=== PATIENT | male | born 1975 | race Caucasian/White ===

== ENCOUNTER 2018-07-10 03:48 | Emergency (ER) | payer OTHER ==
[2018-07-10] MEDS ORDERED: Metoclopramide 10 MG/2 ML SDV IVPUSH ONE (04:23)
[2018-07-10] MEDS ORDERED: Hyoscyamine 0.125 MG Tab.SL SL ONE (04:23)
[2018-07-10] MEDS ORDERED: HYDROmorphone 1 MG/ML Syringe IVPUSH ONE (04:23)
--- NOTE | 2018-07-10 04:28 | EDM.PDOC ---
ED HPI GENERAL MEDICAL PROBLEM - General Chief Complaint: Abdominal Pain Stated Complaint: GALLBLADDER ISSUES, STOMACH ISSUES Time Seen by Provider: 07/10/18 04:23 Source of Information: Reports: Patient History Limitations: Reports: No Limitations - History of Present Illness INITIAL COMMENTS - FREE TEXT/NARRATIVE: 43-year-old male presents to the ED after wakening from sleep at about midnight with diffuse right upper quadrant abdominal pain. Pain radiates along his costal margin in the summer tubular colic which she's experienced in the past. Reports she's had his gallbladder removed laparoscopically about 9 years ago. He did fine up until about April of this year when he presented to the ED with diffuse right upper quadrant abdominal pain. He tells me that ultrasound identified a stone witin one of his hepatic ducts. At that time he was diagnosed with pancreatitis as well. He had serial lab work done and things return back to normal. Subsequently he has avoided alcohol and is careful with his diet and he's been fine up until tonight. States his stomach did not feel real well last evening and he had broth soup some yogurt only. Current pain is across his entire upper abdomen in the distribution of the pancreas. Opinion pain radiates along the right costal margin to the right lateral chest wall but not inferior to his shoulder blade. states he got up out of bed at midnight and moved to the couch and other places and pain seemed to ease up a little bit. Nausea started to become quite severe around 3:00. He vomited en route to the hospital and got some transient relief of the pain but it has now returned. He does not know he met emesis occurred. It was all bile. It's unclear to me why he was not referred for ERCP especially when he had an associated pancreatitis on visit in April. I will investigate old records. Patient reports no other abdominal surgeries. Onset: Today Onset Date: 07/10/18 Onset Time: 00:00 Duration: Hour(s): Location: Reports: Abdomen (Right upper quadrant of the abdomen.), Radiates to ( Radiates along the right costal margin and across his upper abdomen.) Quality: Reports: Ache, Other (In is described as a deep aching pain with occasional sharp colicky type pain) Severity: Moderate (7 out of 10) Improves with: Reports: Other (Transient improvement after vomiting.) Worsens with: Reports: None Context: Reports: Other (Awoke from sleep with abdominal pain). Denies: Activity, Exercise, Lifting, Sick Contact, Trauma Associated Symptoms: Reports: Loss of Appetite, Nausea/Vomiting. 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 He is currently on no medications. He's [place] sugars fairly regularly and they are usually between 100-140.), Obesity/BMI 30+ - Past Surgical History HEENT Surgical History: Reports: Oral Surgery GI Surgical History: Reports: Cholecystectomy Social & Family History - Tobacco Use Smoking Status *Q: Never Smoker - Caffeine Use Caffeine Use: Reports: Coffee - Recreational Drug Use Recreational Drug Use: No - Living Situation & Occupation Living situation: Reports: Occupation: Employed ED ROS GENERAL - Review of Systems Review Of Systems: See Below Constitutional: Reports: Decreased Appetite. Denies: Fever, Chills, Malaise, Weakness, Fatigue, Weight Loss HEENT: Reports: Glasses Respiratory: Reports: Shortness of Breath (Can take a full deep breath as it aggravates his upper abdominal pain) Cardiovascular: Reports: No Symptoms. Denies: Chest Pain, Blood Pressure Problem, Claudication, Dyspnea on Exertion, Edema, Lightheadedness, Orthopnea Endocrine: Reports: No Symptoms GI/Abdominal: Reports: Abdominal Pain, Nausea (See history of present illness), Vomiting (Vomiting of bilious material times one shortly before coming to the ED ) : Reports: No Symptoms Musculoskeletal: Reports: No Symptoms Skin: Reports: No Symptoms Neurological: Reports: No Symptoms Psychiatric: Reports: No Symptoms Hematologic/Lymphatic: Reports: No Symptoms Immunologic: Reports: No Symptoms ED EXAM, GI/ABD - Physical Exam Exam: See Below Exam Limited By: No Limitations General Appearance: Alert, WD/WN, No Apparent Distress Eyes: Bilateral: Normal Appearance (No jaundice) Throat/Mouth: Normal Inspection, Normal Lips, Normal Oropharynx Head: Atraumatic, Normocephalic Neck: Normal Inspection, Supple, Non-Tender, Full Range of Motion. No: Lymphadenopathy (L), Lymphadenopathy (R) Respiratory/Chest: No Respiratory Distress, Lungs Clear, Normal Breath Sounds, No Accessory Muscle Use, Chest Non-Tender Cardiovascular: Normal Peripheral Pulses, Regular Rate, Rhythm, No Edema, No Gallop, No Murmur, No Rub GI/Abdominal Exam: Normal Bowel Sounds, Soft, No Organomegaly, No Abnormal Bruit , No Mass, Pelvis Stable, Tender ([employer] well localized to the inferior right costal margin with a positive Enriquez's sign), Other (Abdominal girth limits ability to palpate solid organs.) (Male) Exam: No Hernia Back Exam: Normal Inspection, Full Range of Motion. No: CVA Tenderness (L), CVA Tenderness (R) Extremities: Normal Inspection, Normal Range of Motion, Non-Tender, No Pedal Edema Neurological: Alert, Oriented, CN II-XII Intact, Normal Cognition, Normal Gait Psychiatric: Normal Affect, Normal Mood Skin Exam: Warm, Dry, Intact, Normal Color, No Rash Course - Vital Signs Last Recorded V/S: Last Vital Signs Temp 36.9 C 07/10/18 04:01 Pulse 69 07/10/18 04:01 Resp 18 07/10/18 04:01 BP 134/77 07/10/18 04:01 Pulse Ox 98 07/10/18 04:01 - Orders/Labs/Meds Orders: Active Orders 24 hr Category Date Time Status Abdomen Pelvis w Cont [CT] Stat Exams 07/10/18 05:45 Taken Dextrose 5%-0.9% NaCl [Dextrose 5%-Normal Saline] 1,000 Med 07/10/18 04:30 Active ml IV ASDIRECTED Ketorolac [Toradol] Med 07/10/18 04:30 Active 30 mg IVPUSH ONETIME Medication Orders Dextrose/Sodium Chloride (Dextrose 5%-Normal Saline) 1,000 mls @ 150 mls/hr IV ASDIRECTED CARMEN Last Admin: 07/10/18 04:39 Dose: 150 mls/hr Ketorolac Tromethamine (Toradol) 30 mg IVPUSH ONETIME CARMEN Last Admin: 07/10/18 04:46 Dose: 30 mg Labs: Laboratory Tests 07/10/18 07/10/18 07/10/18 Range/Units 04:30 04:30 04:30 WBC 6.47 (4.23-9.07) K/mm3 RBC 5.40 (4.63-6.08) M/mm3 Hgb 16.4 (13.7-17.5) gm/L Hct 46.5 (40.1-51.0) % MCV 86.1 (79.0-92.2) fl MCH 30.4 (25.7-32.2) pg MCHC 35.3 (32.2-35.5) g/dl RDW Std Deviation 38.8 (35.1-43.9) fL Plt Count 252 (163-337) K/mm3 MPV 10.3 (9.4-12.3) fl Neutrophils % (Manual) 80 H (40-60) % Band Neutrophils % 1 (0-10) % Lymphocytes % (Manual) 14 L (20-40) % Atypical Lymphs % 0 % Monocytes % (Manual) 5 (2-10) % Eosinophils % (Manual) 0 L (0.8-7.0) % Basophils % (Manual) 0 L (0.2-1.2) Platelet Estimate Adequate RBC Morph Comment Normal Sodium 140 (136-145) mEq/L Potassium 3.6 (3.5-5.1) mEq/L Chloride 102 (98-107) mEq/L Carbon Dioxide 26 (21-32) mEq/L Anion Gap 15.6 H (5-15) BUN 14 (7-18) mg/dL Creatinine 1.1 (0.7-1.3) mg/dL Est Cr Clr Drug Dosing 90.33 mL/min Estimated GFR (MDRD) > 60 (>60) mL/min BUN/Creatinine Ratio 12.7 L (14-18) Glucose 200 H (74-106) mg/dL Hemoglobin A1c 6.40 H (4.50-6.20) % Calcium 9.3 (8.5-10.1) mg/dL Total Bilirubin 2.8 H (0.2-1.0) mg/dL GGT 1717 H (15-85) U/L AST 538 H (15-37) U/L ALT 891 H (16-63) U/L Alkaline Phosphatase 146 H (46-116) U/L C-Reactive Protein 0.5 (<1.0) mg/dL Total Protein 7.4 (6.4-8.2) g/dl Albumin 4.3 (3.4-5.0) g/dl Globulin 3.1 gm/dL Albumin/Globulin Ratio 1.4 (1-2) Amylase 945 H* (25-115) U/L Lipase 05270 H (73-393) U/L Meds: Medications Generic Name Dose Route Start Last Admin Trade Name Freq PRN Reason Stop Dose Admin Dextrose/Sodium Chloride 1,000 mls @ 150 mls/hr 07/10/18 04:30 07/10/18 04:39 Dextrose 5%-Normal Saline IV 150 mls/hr ASDIRECTED CARMEN Administration Ketorolac Tromethamine 30 mg 07/10/18 04:30 07/10/18 04:46 Toradol IVPUSH 30 mg ONETIME CARMEN Administration Discontinued Medications Generic Name Dose Route Start Last Admin Trade Name Freq PRN Reason Stop Dose Admin Hydromorphone HCl 1 mg 07/10/18 04:23 07/10/18 04:42 Dilaudid IVPUSH 07/10/18 04:24 1 mg ONETIME ONE Administration Hyoscyamine 0.125 mg 07/10/18 04:23 07/10/18 04:39 Hyomax-Sl SL 07/10/18 04:24 0.125 mg ONETIME ONE Administration Iopamidol 125 ml 07/10/18 05:58 07/10/18 05:59 Isovue-300 (61%) IVPUSH 07/10/18 05:59 125 ml ONETIME ONE Administration Metoclopramide HCl 10 mg 07/10/18 04:23 07/10/18 04:39 Reglan IVPUSH 07/10/18 04:24 10 mg ONETIME ONE Administration - Radiology Interpretation Free Text/Narrative:: 43-year-old male presents to the ED with acute onset of right upper quadrant abdominal pain about midnight. Subsequently the pain is spread across his upper abdomen. Radiates mildly along the right costal margin to the lateral posterior chest. He states that the similar type pain expressed in April when he was diagnosed with a new stone in either hepatic duct or common bile duct. He did have an associated pancreatitis at that time and serial enzymes returned revealed return of liver enzymes and pancreatic enzymes were normal suggesting had passed a stone. Subsequent ultrasound revealed the stone was in a position that was felt to be safe or inoperable and not sure. I'm not sure if there is a stone in his hepatic duct. At any rate he has been pain-free essentially since the end of April when he had his last bad attack. Was not hospitalized during that attack. Neither was he sent for gastroenterology consultation for potential ERCP. Plan IV normal saline at 150 mils per hour. Will be given Toradol 30 mg IV with Reglan 10 mg IV and Dilaudid 1 mg IV for acute pain and nausea relief. Labs of course will be done to assess pancreatic function and liver function including a GGT. Will likely need an imaging study and CT of the abdomen will likely be performed with IV contrast if his renal function proves to be normal. Apparently he is a type II diabetic and it's unclear if he is on metformin at this time. - Re-Assessments/Exams Free Text/Narrative Re-Assessment/Exam: 07/10/18 04:52 I have reviewed the ultrasound report from May [address] Kate--radiologist identified no intrahepatic biliary duct dilatation. Dental 5, bile duct to be about 5 mm in size. He felt that there was likely a nonobstructing stone partially 7 mm in size in the common bile duct. No comment made on the shape or size of the pancreas. 07/10/18 05:48 Labs are back. White count is 6.47. Differentials 80% neutrophils and 1% band cells. Hemoglobin is 16.4 with hematocrit of 46.5. Platelet count is normal at 252,000. Sodium was 140 with a potassium of 3.6. Chloride is 102 with a bicarbonate of 26. Anion gap mildly elevated at 15.6. BUN is 14 with a creatinine of 1.1. GFR is greater than 60. Glucose is elevated at 200. Hemoglobin A1c is 6.40. Calcium was normal at 9.3. Bilirubin is elevated at 2.8. AST is elevated at 538. ALT is elevated at 891. Alk phosphatase elevated at 146. GGT is pending. C-reactive protein is 0.5. Amylase is elevated at 945. Lipase is pending. Patient will have CT of the abdomen and pelvis with IV contrast only. 07/10/18 06:22 GGT is back and is elevated at 1717. Lipase is also markedly elevated at 21,108. Patient states pain is currently tolerable. CT of the abdomen has been completed. It does not reveal any obvious intrahepatic duct dilatation. It does show evidence of pancreatitis with diffuse inflammation around particular the head of the pancreas. Common bile duct is dilated. Labs suggest common bile duct obstruction and patient is going to require ERCP. He prefers to travel to [facility] for care. I will try and make arrangements with that facility. 07/10/18 06:44 I was able to speak with Dr. Rianna Cannon --hospitalist at [facility] and she has accepted care. I've also spoke with dramatic art teacher Dr. Justin and he was made aware of the laboratory findings. He agrees that the patient is likely in need of a ERCP. She will therefore travel to [facility] with plans to be admitted this morning. Departure - Departure Time of Disposition: 06:45 Disposition: DC/Tfer to Acute Hospital 02 Condition: Fair Clinical Impression: Acute pancreatitis due to calculus of common bile duct Choledocholithiasis with obstruction Qualifiers: Cholecystitis presence: without cholecystitis Qualified Code(s): K80.51 - Calculus of bile duct without cholangitis or cholecystitis with obstruction - Discharge Information *PRESCRIPTION DRUG MONITORING PROGRAM REVIEWED*: Not Applicable *COPY OF PRESCRIPTION DRUG MONITORING REPORT IN PATIENT SHAKEEL: Not Applicable Referrals: Justin Mora MD [Primary Care Provider] - Forms: ED Department Discharge Additional Instructions: Travel to [facility] in [facility] with plans to be admitted to the hospital for definitive management of suspect stone occluding or common bile duct. This is caused evidence of inflammation of your liver and pancreas due to blockage of the common bile duct with presumed stone. I spoke with Dr. Justin from the department of gastroenterology and he concurs with the laboratory findings that you likely need ERCP with removal of the stone. I have spoken with Dr. Rianna Cannon hospitalist who will be admitting you to the hospital this morning. You're to travel to that institution as soon as possible. Nothing to eat or drink till after proposed surgery has been carried out. - My Orders Last 24 Hours: My Active Orders 07/10/18 04:30 Dextrose 5%-0.9% NaCl [Dextrose 5%-Normal Saline] 1,000 ml IV ASDIRECTED Ketorolac [Toradol] 30 mg IVPUSH ONETIME 07/10/18 05:45 Abdomen Pelvis w Cont [CT] Stat - Assessment/Plan Last 24 Hours: My Active Orders 07/10/18 04:30 Dextrose 5%-0.9% NaCl [Dextrose 5%-Normal Saline] 1,000 ml IV ASDIRECTED Ketorolac [Toradol] 30 mg IVPUSH ONETIME 07/10/18 05:45 Abdomen Pelvis w Cont [CT] Stat
[2018-07-10] MEDS ORDERED: Ketorolac 30 MG/ML SDV IVPUSH SCH (04:30)
[2018-07-10] MEDS ORDERED: Dextrose 5%-0.9% NaCl 1,000 ML IV SCH (04:30)
[2018-07-10] MEDS ORDERED: Iopamidol 612 MG/ML 150 ML Bottle IVPUSH ONE (05:58)
--- NOTE | 2018-07-17 07:30 | CT ---
CT abdomen and pelvis Technique: Multiple axial sections were obtained from above the dome of the diaphragm inferiorly through the pubic symphysis. Intravenous contrast was utilized. Delayed images were also obtained through the abdomen and pelvis. Comparison: No prior abdominal imaging is available. Findings: Calcified granuloma is identified within the right middle lobe which is incidental. Visualized lung bases show nothing acute. Liver shows no focal parenchymal abnormality. Minimal intrahepatic biliary ductal dilatation is seen which is likely residual from prior cholecystectomy. Length of the spleen is mildly prominent 15.9 cm.. Adrenal glands show no nodule. Pancreas shows surrounding inflammatory change compatible with pancreatitis. Aorta shows no aneurysmal dilatation. No retroperitoneal adenopathy or mesenteric abnormalities are seen. No pelvic mass or adenopathy is seen. No free fluid is identified. Delayed images show contrast within the bladder. Bone window settings were reviewed which show mild degenerative change within the lower lumbar spine. Impression: 1. Mild inflammatory change is seen around pancreas compatible with pancreatitis. No free fluid is seen. 2. Slight intrahepatic biliary duct dilatation which is likely residual from prior cholecystectomy. 3. Mild splenomegaly. 4. Other incidental findings. Diagnostic code #5 I agree with preliminary report from [facility], finalized at 07/10/18, 7:34 AM Central Time
== END 2018-07-10 06:50 ==
LOC: JD.ED 03:48
DX: K80.51 Calculus of bile duct without cholangitis or cholecystitis with obstruction (principal); K85.80 Other acute pancreatitis without necrosis or infection; I10 Essential (primary) hypertension; Z88.5 Allergy status to narcotic agent
CPT/HCPCS: 36415; 74177; 80053; 82150; 82977; 83036; 83690; 85007; 85027; 86140; 96361; 96374; 96375; 99285; A9270; J1170; J1885; J2765; J7042; Q9967